=== PATIENT | male | born 1985 | race Caucasian/White ===

== ENCOUNTER 2018-11-11 17:56 | Emergency (ER) | payer BC, OTHER ==
[~2018-11-11] VITALS: Ht 172.7 cm; Wt 77.1 kg
[2018-11-11 18:50] VITALS: BP 123/76
--- NOTE | 2018-11-11 20:25 | NUR ---
CALLED TO BRING INTO ROOM, NO ANSWER. WILL FOLLOW UP
--- NOTE | 2018-11-11 20:27 | NUR ---
PER PAC DAVE CALLED PT NAME IN WR AND PARKING LOT [address]. NO ONE RESPONDED.
== END 2018-11-11 20:27 | disposition left against medical advice (07) ==
LOC: ER 17:59
DX: Z53.21 Procedure and treatment not carried out due to patient leaving prior to being seen by health care provider (principal); R10.11 Right upper quadrant pain